=== PATIENT | female | born 1940 | race Caucasian/White ===

== ENCOUNTER → 2016-10-15 | Outpatient (CLI) | payer MEDICARE, BC ==
[~2016-10-15] MED LIST: LOTENSIN HCT 201 TA1; SYNTHROID PO
--- NOTE | ~2016-10-15 | MY11 ---
[facility] A Service of [facility] RADIOLOGY TEXT RESULTS PATIENT: CLEMENTE SANCHEZ LOCATION: [facility] : 36 UNIT #: [id number] AGE: [address]: Elisabeth Coronado SEX: F ORDER DR: [id number] [facility] [address] [place], [place] [address] [id number] O MR#: [id number] Acc #: [id number] NAME: CLEMENTE SANCHEZ : 1940 SEX: F STUDY DATE/TIME: 10/15/2016 12:29 UNIT: [facility] ROOM: STUDY DESCRIPTION: MY Mammogram Screening Dig Jorge Alberto Attending Physician: Lester Liu Referring Physician: Lester Liu Ordering Physician: Lester Liu Primary Care Physician: Lester Liu MEDICAL IMAGING REPORT This report is preliminary unless electronic signature is present EXAM Screening mammogram, 10/15/2016. HISTORY 76-year-old with no personal or family history of breast cancer. No current complaints. FINDINGS Routine digital screening views of both breasts were obtained. The study was reviewed with an FDA-approved CAD device. Comparison made with 10/12/2014 and 10/13/2010. Breast parenchyma shows scattered fibroglandular densities. No masses or superior microcalcifications are seen. Scattered benign calcifications are again seen in both breasts. IMPRESSION Benign mammogram. Routine screening in 1 year recommended. Patients over the age of 40 are entered into a reminder system with target due date for the next mammogram. A result letter will also be sent to the patient. BIRADS: 2 Benign finding. Dictated by... Jarred Roman Jr., M.D. THIS IS AN ELECTRONICALLY VERIFIED REPORT [facility] A Service of [facility] RADIOLOGY TEXT RESULTS PATIENT: CLEMENTE SANCHEZ LOCATION: [facility] : 36 UNIT #: [id number] AGE: [address]: Elisabeth Coronado SEX: F ORDER DR: Jarred Roman Jr., M.D. at 10/16/2016 9:48 AM BOBBY/ayush TD: 10/15/2016 18:36 JOB #: [id number] MEDICAL IMAGING REPORT Page 1 of 1 COPY
--- NOTE | ~2016-10-15 | BD1 ---
[facility] A Service of [facility] RADIOLOGY TEXT RESULTS PATIENT: CLEMENTE SANCHEZ LOCATION: [facility] : 36 UNIT #: [id number] AGE: [address]: Elisabeth Coronado SEX: F ORDER DR: [id number] [facility] [address] [place], [place] [address] [id number] O MR#: [id number] Acc #: [id number] NAME: CLEMENTE SANCHEZ : 1940 SEX: F STUDY DATE/TIME: 10/15/2016 12:48 UNIT: [facility] ROOM: STUDY DESCRIPTION: BD Dexa Bone Dens 1+ Site Attending Physician: Lester Liu Referring Physician: Lester Liu Ordering Physician: Lester Liu Primary Care Physician: Lester Liu MEDICAL IMAGING REPORT This report is preliminary unless electronic signature is present EXAM Bone density spine hip, 10/15/2016 HISTORY Osteo screening postmenopausal. On thyroid medication 20 years. Former smoker. FINDINGS Bone density scanning performed upper 4 lumbar vertebral segments and proximal left femur in 76-year-old 182-pound female. Comparison is 05/19/2008. The L1-L4 bone mineral density overall is 1.013 g/cm2 for T-score 0.3 standard deviations below mean for reference population normal young individuals and Z-score 2.3 standard deviations above the mean for an age-match population. Compared to April 2008, there has been a 1.6% increase in bone mineral density in the upper 4 lumbar vertebral segments overall. Proximal left femur total bone mineral density 0.789 g/cm2 for T-score 1.3 standard deviation below mean for reference population normal young individuals and Z-score 0.7 standard deviations above the mean for age-matched population. In the left femoral neck, bone mineral density is 0.755 g/cm2 for T-score 0.7 standard deviations below mean for reference population normal young individuals and Z-score 1.7 standard deviations above the mean for age-match population. Using total bone mineral density as trending value in this region, there has been a 5.3% statistically significant decrease in proximal left femoral bone mineral density compared to April 2008. IMPRESSION 1. Osteopenia in the proximal left femur. Patient felt to be at increased risk for fracture. Treatment options may be considered. 2. Statistically significant decrease in proximal left femur bone mineral density compared to April 2008. Please see details in body STS. [facility] A Service of [facility] RADIOLOGY TEXT RESULTS PATIENT: CLEMENTE SANCHEZ [id number] 36 UNIT #: [id number] AGE: [address]: Elisabeth Coronado SEX: F ORDER DR: of report above. Dictated by... Vincent Galaviz M.D. THIS IS AN ELECTRONICALLY VERIFIED REPORT Vincent Galaviz M.D. at 10/16/2016 6:04 PM KI/myron TD: 10/15/2016 21:15 JOB #: [id number] MEDICAL IMAGING REPORT Page 1 of 1 COPY
== END | disposition home or self-care (01) ==
LOC: CWCC 11:57
DX: Z13.820 Encounter for screening for osteoporosis (principal); Z12.31 Encounter for screening mammogram for malignant neoplasm of breast; M85.852 Other specified disorders of bone density and structure, left thigh
CPT/HCPCS: 77080; G0202